=== PATIENT | female | born 1965 | race Caucasian/White ===

== ENCOUNTER 2019-12-28 10:48 | Emergency (ER) | payer SELFPAY ==
--- NOTE | 2019-12-28 11:02 | ECG_ITS ---
Measurements Intervals [place] Rate: 68 P: 64 TN: 172 QRS: 1 QRSD: 76 T: 51 QT: 368 QTc: 392 SINUS RHYTHM POSSIBLE LEFT ATRIAL ENLARGEMENT [-0.1mV P WAVE IN V1/V2] Compared to ECG 10/29/2016 11:34:46 No significant changes Electronically Signed On 12-28-2019 20:54:46 FREIGHT ROUTER by Lemuel Carvajal M.D. [email or web address]
--- NOTE | 2019-12-28 11:02 | XRR_ITS ---
PROCEDURE INFORMATION: Exam: XR Chest, 1 View Exam date and time: 12/28/2019 11:52 AM Age: 54 years old Clinical indication: Smoker's cough; Prior surgery; Surgery date: 6+ months; Surgery type: Gall bladder; Additional info: Cough/congestion TECHNIQUE: Imaging protocol: XR of the chest Views: 1 view. COMPARISON: CR Chest 1 [place] [id number] 10/29/2016 11:49 AM FINDINGS: Lungs: Unremarkable. No consolidation. Pleural space: Unremarkable. No pleural effusion. No pneumothorax. Heart/Mediastinum: Unremarkable. No cardiomegaly. Bones/joints: Unremarkable. XR/XR chest 1V portable [id number] IMPRESSION: No acute findings.
[2019-12-28 11:06] VITALS: BP 147/86; PULSE 69; RESP 16; TEMP 36.5; O2SAT 99; BMI 25.0
--- NOTE | 2019-12-28 11:21 | ED_ITS ---
Entered by Vicky Marques, acting as scribe for Dec 28, 2019 10:48 HPI - Chest Pain General: Chief Complaint: Chest Pain Stated Complaint: Chest Pain Time Seen by Provider: 12/28/19 11:19 History of Present Illness: HPI narrative: 54 yo female presents with chest pain. pt states that her pain is worsened by breathing deep. pt states that she has been belching more. Pt states that she has had her gallbladder removed. Pt states that pushing her chest relieves the pain. She denies any radiation of pain into the neck or arms. No associated diaphoresis or dyspnea. MD complaint: chest pain Onset (ago): day(s) (3) Timing of current episode: constant Prior episodes: No Pain location: substernal Pain radiation: none Severity: moderate Quality: tightness Relieving factors: other (palpation ) Exacerbating factors: inspiration Associated symptoms: Reports no associated symptoms; Deny abdominal pain, dyspnea, fever(s), nausea, palpitations, syncope or vomiting Review of Systems Const: Denies: fever, chills, body aches, fatigue, malaise or night sweats Eyes: Denies: change in vision or blurry vision ENMT: Denies: throat pain, oral sores/lesions, dental pain, nasal discharge or nasal congestion Card: Denies: chest pain, palpitations, irregular heart rhythm, edema, syncope, shortness of breath on exertion, shortness of breath when lying down or leg pain with exertion Resp: Denies: shortness of breath, productive cough, non-productive cough or wheezing GI: Denies: abdominal pain, nausea, vomiting, vomiting blood, coffee grounds in vomit, difficulty swallowing, heartburn/indigestion, diarrhea, constipation, cramping, blood in stool or black tarry stool : Denies: flank pain, painful urination, urinary frequency, urinary urgency, urinary incontinence or blood in urine Musc: Denies: neck pain, back pain, extremity pain, extremity swelling, joint pain or joint swelling Skin/Breast: Denies: rash, itching or redness Neuro: Denies: headache, numbness in extremities, weakness in extremities, changes in sensation, lack of coordination, difficulty walking, frequent falls, dizziness, vertigo or confusion Psych: Denies: anxiety, depression, loss of interest, visual hallucinations, auditory hallucinations, suicidal ideation or homicidal ideation Endo: Denies: excessive urination, excessive thirst, tired all the time or cold intolerance Miguel/Lymph: Denies: easy bruising, easy bleeding, petechiae, enlarged lymph nodes or tender lymph nodes PFSH ED PFSH: Statuses (acute, chronic, etc) shown below reflect problem list status as previously entered and may not be historically accurate Surgical History H/O Spinal surgery (Acute) History of cholecystectomy (Acute) Social History Smoking and tobacco status: never smoked Physical Exam Const: COMMON NORMALS: average body habitus, oriented x3 and alert GENERAL APPEARANCE: cooperative, comfortable, well kempt and well developed NUTRITIONAL APPEARANCE: not obese ORIENTATION/CONSCIOUSNESS: Yes awake, Yes oriented to person and Yes oriented to place HENMT: COMMON NORMALS: normocephalic, head/scalp atraumatic, EAC's normal, TM's normal bilaterally, external nose normal, moist oral mucous membranes and oropharynx normal HEAD & SCALP: normocephalic and atraumatic NOSE: external nose normal EXTERNAL AUDITORY CANAL: EAC's normal TYMPANIC MEMBRANE: TM's normal bilaterally MOUTH: oral and palatal mucosa normal, lip normal and tongue normal THROAT: posterior oropharynx normal and tonsils normal Eye: COMMON NORMALS: PERRL, EOMs intact bilaterally, conjunctivae normal and no scleral icterus CONJUNCTIVA: Yes conjunctivae normal PUPIL: Yes PERRL Neck/C-Spine: COMMON NORMALS: full ROM, no lymphadenopathy, supple, no meningeal signs and thyroid normal THYROID: thyroid normal and asymmetrical Lymph: LYMPHATIC: no lymphadenopathy noted Resp: COMMON NORMALS: normal respiratory effort, no retractions, no use of accessory muscles and clear to auscultation bilaterally AUSCULTATION: clear to auscultation bilaterally Cardio: COMMON NORMALS: regular rate and regular rhythm RATE: regular rate RHYTHM: regular rhythm HEART SOUNDS: no murmurs GI: COMMON NORMALS: normal to inspection, nondistended, normoactive bowel sounds, soft to palpation and no hepatosplenomegaly PALPATION: Yes soft and Yes no hepatosplenomegaly : COMMON NORMALS: Yes no CVA tenderness BLADDER/KIDNEY EXAM: Yes no CVA tenderness Back/Pelvis: COMMON NORMALS: no CVA tenderness LUMBAR SPINE/LOWER BACK: Yes normal to inspection Extremity: COMMON NORMALS: no clubbing, cyanosis or edema, no calf tenderness and no pedal edema Neuro: COMMON NORMALS: oriented x3 SENSORIUM/ORIENTATION: Yes alert, Yes oriented to person and Yes oriented to place MENINGEAL SIGNS: Yes no meningeal signs Psych: APPEARANCE: Yes well kempt Skin: COMMON NORMALS: no rashes or lesions noted and skin turgor normal GENERAL SKIN EXAM: no rashes or lesions noted and turgor normal Course ED course: Reviewed findings with the patient. Pain significantly worsened by deep breath no other triggers noted chest x-ray normal labs normal return if worsens follow-up with primary care provider given NSAIDs for pain control. Vital Signs: Vital signs: Vital Signs Temperature 97.7 F 12/28/19 11:06 Pulse Rate 65 12/28/19 13:27 Respiratory Rate 18 12/28/19 13:27 Blood Pressure 119/68 12/28/19 13:27 Pulse Oximetry 96 12/28/19 13:27 MDM - Chest Pain Lab Data: Labs: Lab Results 12/28/19 12/28/19 12/28/19 Range/Units 12:00 12:00 12:00 WBC 7.7 (4.0-10.0) 10^3/ uL RBC 4.99 (4.1-5.3) 10^6/u L Hgb 14.2 (11.5-15.3) g/dL Hct 42.8 (37.0-47.0) % MCV 85.8 (81-99) fL MCH 28.5 (28.0-34.0) pg MCHC 33.2 (30.0-36.0) g/dL RDW 12.5 (12.1-15.1) % Plt Count 332 (130-400) 10^3/c mm MPV 10.1 (7.4-10.4) fL Neut % (Auto) 60.4 % Lymph % (Auto) 29.3 % [place] % (Auto) 7.7 % Eos % (Auto) 1.7 % Baso % (Auto) 0.8 % Neut # (Auto) 4.7 (1.8-7.7) 10^3/u L Lymph # (Auto) 2.3 (0.8-4.8) 10^3/u L [place] # (Auto) 0.6 (0.2-0.9) 10^3/u L Eos # (Auto) 0.1 (0.0-0.8) 10^3/u L Baso # (Auto) 0.1 (0.0-0.1) 10^3/u L Nucleated RBC % (a uto) 0 % Nucleated RBCs # 0.0 /100WBC Sodium 137 (136-145) mmol/L Potassium 4.0 (3.5-5.1) mmol/L Chloride 102 (98-107) mmol/L Carbon Dioxide 23 (22-29) mmol/L Anion Gap 16.0 (5-19) BUN 17 (6-20) mg/dL Creatinine 0.7 (0.5-0.9) mg/dL GFR Calculation 87.9 L (90-130) mL/min Glucose 114 (65-115) mg/dL Calcium 9.7 (8.5-10.5) mg/dL Total Bilirubin 0.2 (0.15-1.2) mg/dL AST 23 (0-32) U/L ALT 25 (0-33) U/L Alkaline Phosphata se 76 (35-105) IU/L Troponin T Baselin e 6 (0-10) ng/mL Troponin T 120 Min pilot station (0-10) ng/mL Delta Troponin T (0-10) ABS# Total Protein 7.1 (6.6-8.7) g/dL Albumin 4.3 (3.5-5.2) g/dL Globulin 2.8 (1.3-4.6) g/dL 12/28/19 Range/Units 13:09 WBC (4.0-10.0) 10^3/ uL RBC (4.1-5.3) 10^6/u L Hgb (11.5-15.3) g/dL Hct (37.0-47.0) % MCV (81-99) fL MCH (28.0-34.0) pg MCHC (30.0-36.0) g/dL RDW (12.1-15.1) % Plt Count (130-400) 10^3/c mm MPV (7.4-10.4) fL Neut % (Auto) % Lymph % (Auto) % [place] % (Auto) % Eos % (Auto) % Baso % (Auto) % Neut # (Auto) (1.8-7.7) 10^3/u L Lymph # (Auto) (0.8-4.8) 10^3/u L [place] # (Auto) (0.2-0.9) 10^3/u L Eos # (Auto) (0.0-0.8) 10^3/u L Baso # (Auto) (0.0-0.1) 10^3/u L Nucleated RBC % (a uto) % Nucleated RBCs # /100WBC Sodium (136-145) mmol/L Potassium (3.5-5.1) mmol/L Chloride (98-107) mmol/L Carbon Dioxide (22-29) mmol/L Anion Gap (5-19) BUN (6-20) mg/dL Creatinine (0.5-0.9) mg/dL GFR Calculation (90-130) mL/min Glucose (65-115) mg/dL Calcium (8.5-10.5) mg/dL Total Bilirubin (0.15-1.2) mg/dL AST (0-32) U/L ALT (0-33) U/L Alkaline Phosphata se (35-105) IU/L Troponin T Baselin e (0-10) ng/mL Troponin T 120 Min pilot station 6.00 (0-10) ng/mL Delta Troponin T 0 (0-10) ABS# Total Protein (6.6-8.7) g/dL Albumin (3.5-5.2) g/dL Globulin (1.3-4.6) g/dL Discharge Plan Discharge Patient Disposition: Home, Self-Care Clinical Impression: Atypical chest pain, Pleuritis Condition: Stable Prescriptions: New diclofenac sodium 75 mg tablet,delayed release (DR/EC) 75 mg PO BID PRN (Reason: pain) Qty: 20 RF: 0 Discharge Orders: Discharge Order (Routine); Ordered 12/28/19 Ordered By: David Euceda Referrals: Esvin Newberry DO [Family Provider] - Discharge Diet: Usual diet Discharge Activity: Resume usual activity Activity Restrictions/Additional Instructions: Follow-up with your primary care provider. Return to the ER if worsens. Discharge Date/Time: 12/28/19 13:28 Coding Level of Care Code ED Location Analyst for Chg Fwd Exam Problem Focused The documentation recorded by the Jerald rhodes Kialy, accurately reflects the service I personally performed and the decisions made by Kinsey pena Curtis L, DO Dec 28, 2019 10:48
[2019-12-28 11:33] VITALS: BP 111/56; PULSE 62; RESP 15; O2SAT 95
[2019-12-28 12:09] LABS: Basophils # 0.1 10^3/uL (0.0-0.1); Basophils % 0.8 %; Eosinophils # 0.1 10^3/uL (0.0-0.8); Eosinophils % 1.7 %; Hematocrit 42.8 % (37.0-47.0); Hemoglobin 14.2 g/dL (11.5-15.3); Lymphocytes # 2.3 10^3/uL (0.8-4.8); Lymphocytes % 29.3 %; Mean Corpuscular HGB Conc 33.2 g/dL (30.0-36.0); Mean Corpuscular Hemoglobin 28.5 pg (28.0-34.0); Mean Corpuscular Volume 85.8 fL (81-99); Mean Platelet Volume 10.1 fL (7.4-10.4); Monocytes # 0.6 10^3/uL (0.2-0.9); Monocytes % 7.7 %; Neutrophils # 4.7 10^3/uL (1.8-7.7); Neutrophils % 60.4 %; Nucleated Red Blood Cells % 0 %; Platelet Count 332 10^3/cmm (130-400); Red Blood Count 4.99 10^6/uL (4.1-5.3); Red Cell Distribution Width 12.5 % (12.1-15.1); White Blood Count 7.7 10^3/uL (4.0-10.0)
[2019-12-28 12:26] VITALS: BP 114/68; PULSE 64; RESP 18; O2SAT 98
[2019-12-28 12:26] LABS: Alanine Aminotransferase 25 U/L (0-33); Albumin Level 4.3 g/dL (3.5-5.2); Alkaline Phosphatase 76 IU/L (35-105); Aspartate Amino Transferase 23 U/L (0-32); Blood Urea Nitrogen 17 mg/dL (6-20); Calcium 9.7 mg/dL (8.5-10.5); Carbon Dioxide 23 mmol/L (22-29); Chloride 102 mmol/L (98-107); Globulin 2.8 g/dL (1.3-4.6); Glomerular Filtration Rate 87.9 mL/min (90-130); Glucose 114 mg/dL (65-115); Sodium 137 mmol/L (136-145); Total Bilirubin 0.2 mg/dL (0.15-1.2); Total Protein 7.1 g/dL (6.6-8.7)
[2019-12-28 12:27] LABS: Troponin(5th) Baseline 6 ng/mL (0-10)
--- NOTE | 2019-12-28 13:02 | ECG_ITS ---
Measurements Intervals [place] Rate: 59 P: 68 PA: 175 QRS: 44 QRSD: 84 T: 58 QT: 402 QTc: 401 SINUS BRADYCARDIA POSSIBLE LEFT ATRIAL ENLARGEMENT [-0.1mV P WAVE IN V1/V2] Compared to ECG 10/29/2016 11:34:46 Sinus rhythm no longer present Electronically Signed On 12-28-2019 20:59:56 WOOD [employer]IP BLOCK FLOOR INSTALLER by Lemuel Carvajal M.D. [email or web address]
[2019-12-28 13:27] VITALS: BP 119/68; PULSE 65; RESP 18; O2SAT 96
[2019-12-28 14:04] LABS: Troponin 5 2HR Delta 0 ABS# (0-10)
== END 2019-12-28 13:28 | disposition home or self-care (01) ==
PROVIDERS: Physician Assistant; Emergency Provider Family Medicine; Family Provider Internal Medicine
DX: R07.89 Other chest pain (principal); R09.1 Pleurisy
CPT/HCPCS: 36415; 71045; 80053; 84484; 85025; 93005; 99282; 99283

== ENCOUNTER 2023-05-28 14:38 | Outpatient (CLI) | payer OTHER, SELFPAY ==
--- NOTE | 2023-05-28 14:57 | MM_ITS ---
WS: [id number] Bilateral diagnostic 3D tomosynthesis digital mammogram, 05/28/2023 Clinical Data: BREAST PAIN Comparison: 06/20/2015, 06/06/2015. Findings: The breast parenchymal pattern shows fibroglandular tissue. There are mole markers on both breasts. T here are no spiculated masses or clustered calcifications. There are no secondary signs of carcinoma. MM/[place] [id number] Impression: 1. Negative bilateral mammograms unchanged. 2. Left breast ultrasound will be performed. BIRADS: 2-Benign FOLLOW UP: See Report The CAD clerk checker was used.
--- NOTE | 2023-05-28 15:08 | US_ITS ---
WS: [id number] Left breast ultrasound, 05/28/2023 Clinical Data: SCREENING Comparison: None. Findings: The upper outer quadrant of the left breast from 9:00 to 12:00 was examined. There was a lymph node i n the axilla. No spiculated masses were noted. No cysts were seen. The left axillary lymph node measu red 1.32 x 3.13 x 3.41 cm and had a normal border and configuration. US/US breast LT limited* [id number] Impression: 1. Lymph node in left axilla. 2. Recommend return to annual screening mammograms. BIRADS: 2-Benign FOLLOW UP: 1 Year Follow-up
== END 2023-05-28 14:39 | disposition home or self-care (01) ==
PROVIDERS: PCP Internal Medicine; Visit Provider Internal Medicine
DX: N64.4 Mastodynia (principal); Z12.39 Encounter for other screening for malignant neoplasm of breast
CPT/HCPCS: 76642; 77062; G0279

== ENCOUNTER 2024-04-19 16:42 | Emergency (ER) | payer OTHER, SELFPAY ==
[2024-04-19 16:46] VITALS: BP 148/76; PULSE 71; RESP 18; TEMP 36.8; O2SAT 98; BMI 24.7
[2024-04-19 17:08] LABS: Basophils # 0.1 10^3/uL (0.0-0.1); Eosinophils # 0.1 10^3/uL (0.0-0.8); Eosinophils % 1.1 %; Hematocrit 43.8 % (36-47); Lymphocytes # 2.9 10^3/uL (0.8-4.8); Lymphocytes % 40.7 %; Mean Corpuscular HGB Conc 33.6 g/dL (30-55); Mean Corpuscular Hemoglobin 28.6 pg (27-33); Mean Corpuscular Volume 85.2 fl (85-98); Monocytes # 0.7 10^3/uL (0.2-0.9); Monocytes % 10.3 %; Neutrophils # 3.32 10^3/uL (1.8-7.7); Neutrophils % 46.8 %; Nucleated Red Blood Cells % 0 %; Platelet Count 329 10^3/cmm (157-399); Red Blood Count 5.14 10^6/uL (3.85-5.65); Red Cell Distribution Width 13.1 % (12.1-15.1)
--- NOTE | 2024-04-19 17:18 | CTR_ITS ---
PROCEDURE INFORMATION: Exam: CT Abdomen And Pelvis With Contrast Exam date and time: 04/19/2024 6:37 PM Age: 59 years old Clinical indication: Abdominal pain; Localized; Lower; Prior surgery; Surgery date: 6+ months; Surgery type: Gb; Additional info: Lower abd/pelvic pain + pressure and bloating TECHNIQUE: Imaging protocol: Computed tomography of the abdomen and pelvis with contrast. Radiation optimization: All CT scans at this facility use at least one of these dose optimization techniques: automated exposure control; mA and/or kV adjustment per patient size (includes targeted exams where dose is matched to clinical indication); or iterative reconstruction. Contrast material: OMNI 350; Contrast volume: 100 ml; Contrast route: INTRAVENOUS (IV); COMPARISON: CR XR chest 1V portable [id number] 12/28/2019 11:41 AM RADIATION DOSE METRICS: Total DLP (mGy-cm): 439 FINDINGS: Lungs: Lung bases are clear. No pleural effusion. Liver: Normal. No mass. Gallbladder and bile ducts: The gallbladder has been resected. Pancreas: Normal. No ductal dilation. Spleen: Normal. No splenomegaly. Adrenal glands: Normal. No mass. Kidneys and ureters: Normal. No hydronephrosis. Stomach and bowel: Unremarkable. No obstruction. No mucosal thickening. Appendix: No evidence of appendicitis. Intraperitoneal space: Unremarkable. No free air. No significant fluid collection. Vasculature: Unremarkable. No abdominal aortic aneurysm. Lymph nodes: Unremarkable. No enlarged lymph nodes. Urinary bladder: Unremarkable as visualized. Reproductive: Unremarkable as visualized. Bones/joints: Unremarkable. No acute fracture. Soft tissues: Unremarkable. CT/CT abdomen pelvis w con* [id number] IMPRESSION: No acute findings.
--- NOTE | 2024-04-19 17:18 | ED_ITS ---
Documented by User: BARRY Rodgers 04/19/24 19:49 HPI - Abdominal Pain 2 General: Chief Complaint: Abdominal Pain Stated Complaint: abd pain Time Seen by Provider: 04/19/24 17:09 Source: patient Mode of arrival: ambulatory Limitations: no limitations History of Present Illness: Patient is a 59-year-old female who presents to the emergency department complaining of lower abdominal pain since Thursday. Initially she was seen at [facility] on Thursday, was given antibiotics empirically for a diverticulitis, though patient denies any history of diverticulitis or diverticulosis. Patient states that her pain is continued to worsen. Pain is located in the bilateral lower quadrants, and she is noting some associated bloating. She states the pain feels like a dull/achy pain with pressure. She states the pain is worsened with ambulation, and does get relief with lying flat though she can still tell that the pain is there. She notes she has been running intermittent fevers and has had some associated nausea. She does state that the pain sometimes radiates into her vaginal region and feels like there is a lot of pressure down there. She states she still has her uterus and ovaries. History of cholecystectomy but still has her appendix. She has not taken anything for pain as she states she is worried of taking ibuprofen due to stomach complications. She denies any blood in her urine or dysuria, vaginal discharge or odor, chills, diaphoresis, back pain, syncope, or other symptoms at this time. MD elicited complaint: abdominal pain Pertinent past history: none Onset (ago): day(s) Pain Consistency: constant Location: RLQ, LLQ, Suprapubic and Pelvis Severity: moderate Quality: aching, fullness and dull Exacerbating factors: movement Relieving factors: rest Associated Symptoms: Reports bloating, fever(s) and nausea; Denies change in stool character, chills, constipation, diarrhea, dysuria, hematochezia, hematuria and vomiting Treatments prior to arrival: other (Antibiotics) Review of Systems 2 General: Reports: 10 or more systems reviewed and unremarkable except in HPI and below Const: Reports: fever(s); Denies: chills, change in appetite, change in weight or diaphoresis ENMT: Denies: throat pain or hoarseness Card: Denies: chest pain, palpitations or lightheadedness Resp: Denies: dyspnea, productive cough or wheezing GI: Reports: abdominal pain, nausea and bloating; Denies: vomiting, diarrhea, constipation, change in stool character or hematochezia : Reports: pelvic pain; Denies: flank pain, difficulty voiding, dysuria, urinary frequency, urinary urgency, hematuria, vaginal odor, vaginal bleeding or vaginal discharge Musc: Denies: neck pain or back pain Skin/Breast: Denies: rash or new lesions Neuro: Denies: headache(s) or dizziness PFSH ED 2 PFSH: Surgical History History of cholecystectomy H/O Spinal surgery Social History Smoking and tobacco/nicotine status: never used tobacco/nicotine Physical Exam 2 Const: COMMON NORMALS: no acute distress, average body habitus, patient oriented x3, no limitations, healthy appearing, alert and well nourished G ENERAL APPEARANCE: cooperative and comfortable ORIENTATION/CONSCIOUSNESS: Yes awake HENMT: COMMON NORMALS: normocephalic, atraumatic, hearing grossly normal bilaterally, external ears normal, Normal external nose present, Normal nasal mucous membranes and turbinates present and moist oral mucous membranes HEAD & SCALP: normocephalic and atraumatic NOSE: Normal external nose present and Normal nasal mucous membranes and turbinates present EXTERNAL EAR: Yes external ears normal Eye: COMMON NORMALS: Equal, round and reactive pupils present, EOMs intact bilaterally, conjunctivae normal and normal visual barney by confrontation C ONJUNCTIVA: Yes conjunctivae normal PUPIL: Yes Equal, round and reactive pupils present Neck/C-Spine: COMMON NORMALS: full ROM, supple, no meningeal signs and no JVD Resp: COMMON NORMALS: normal respiratory effort, No retractions, No use of accessory muscles and clear to auscultation bilaterally AUSCULTATION: clear to auscultation bilaterally, no crackles, no rales, no rhonchi and no wheezes Cardio: COMMON NORMALS: no JVD, regular rate, regular rhythm, S1 normal heart sound present, S2 normal heart sound present, No gallops present (Cardio), No clicks present (Cardio), No murmurs present (Cardio), No rub (Cardio) and Peripheral pulses 2+ throughout RATE: regular rate RHYTHM: regular rhythm HEART SOUNDS: S1 normal heart sound present and S2 normal heart sound present PERIPHERAL PULSES: Peripheral pulses 2+ throughout GI: COMMON NORMALS: Normal to inspection, nondistended, normoactive bowel sounds present, No hepatosplenomegaly present and no masses PALPATION: No Guarding due to palpation present (GI), No Rigid due to palpation and Yes No hepatosplenomegaly present RECTAL EXAM: deferred OTHER: Mild reproducible tenderness to palpation of the bilateral lower quadrants. Mild amount of distention noted. Hyperactive bowel sounds. : COMMON NORMALS: Yes no CVA tenderness BLADDER/KIDNEY EXAM: Yes no CVA tenderness Back/Pelvis: COMMON NORMALS: no CVA tenderness Extremity: COMMON NORMALS: normal to inspection and full ROM Neuro: COMMON NORMALS: patient oriented x3, moves all extremities, no focal motor deficits and no sensory deficits noted SENSORIUM/ORIENTATION: Yes alert MENINGEAL SIGNS: Yes no meningeal signs Psych: COMMON NORMALS: mental status grossly normal, cooperative and speech normal SPEECH: Yes normal speech Skin: COMMON NORMALS: no rashes or lesions noted GENERAL SKIN EXAM: no rashes or lesions noted Course 2 Vital Signs: Vital signs: Vital Signs Temperature 98.2 F 04/19/24 16:46 Pulse Rate 67 04/19/24 20:02 Respiratory Rate 18 04/19/24 20:02 Blood Pressure 135/73 04/19/24 20:02 Pulse Oximetry 98 04/19/24 20:02 Oxygen Delivery Me thod Room Air 04/19/24 18:30 MDM - Abdominal Pain Medical Decision Making Patient presented for 4 days of lower abdominal pain, associated with nausea and bloating. Was started on Cipro and Flagyl for presumed diverticulitis starting Thursday at [facility]. Her examination revealed some mild distention and mild reproducible tenderness to palpation about the lower quadrants and suprapubic region. Her lab work was all entirely unremarkable. Urinalysis negative for any signs of infection. Abdominal pelvic CT did not demonstrate any acute findings. I relayed this to the patient, who is relieved but states that she wants to know what is going on with her. I did inform her to follow-up with primary care for further testing such as potential upper/lower endoscopy, and she states she has never had any procedure like this done. Additionally, she states that she is afraid to take medications and has not taken anything for pain at this time. I did inform her that I recommend taking ibuprofen/Tylenol for her pain, and if she is worried that she can take half doses every 6 hours. She states she will do this and follow-up as discussed. However did give strict return precautions to the ED. Patient discharged home and will be discontinued on antibiotics. Lab Data I reviewed the patient's lab results. 04/19/24 17:01 04/19/24 17:01 Labs/Radiology: Radiology Impressions Abdomen/Pelvis CT 04/19/24 17:18 IMPRESSION: No acute findings. Laboratory Results WBC 7.10 10^3/uL (3.29-11.43) 04/19/24 17:01 RBC 5.14 10^6/uL (3.85-5.65) 04/19/24 17:01 Hgb 14.70 g/dL (11.27-16.99) 04/19/24 17:01 Hct 43.8 % (36-47) 04/19/24 17:01 MCV 85.2 fl (85-98) 04/19/24 17:01 MCH 28.6 pg (27-33) 04/19/24 17:01 MCHC 33.6 g/dL (30-55) 04/19/24 17:01 RDW 13.1 % (12.1-15.1) 04/19/24 17:01 Plt Count 329 10^3/cmm (157-399) 04/19/24 17:01 MPV 10.0 fL (7.4-10.4) 04/19/24 17:01 Neut % (Auto) 46.8 % 04/19/24 17:01 Lymph % (Auto) 40.7 % 04/19/24 17:01 [place] % (Auto) 10.3 % 04/19/24 17:01 Eos % (Auto) 1.1 % 04/19/24 17:01 Baso % (Auto) 1.0 % 04/19/24 17:01 Neut # (Auto) 3.32 10^3/uL (1.8-7.7) 04/19/24 17:01 Lymph # (Auto) 2.9 10^3/uL (0.8-4.8) 04/19/24 17:01 [place] # (Auto) 0.7 10^3/uL (0.2-0.9) 04/19/24 17:01 Eos # (Auto) 0.1 10^3/uL (0.0-0.8) 04/19/24 17:01 Baso # (Auto) 0.1 10^3/uL (0.0-0.1) 04/19/24 17:01 Nucleated RBC % (auto) 0 % 04/19/24 17:01 Nucleated RBCs # 0.0 /100WBC 04/19/24 17:01 Sodium 141 mmol/L (136-145) 04/19/24 17:01 Potassium 4.0 mmol/L (3.5-5.1) 04/19/24 17:01 Chloride 104 mmol/L (98-107) 04/19/24 17:01 Carbon Dioxide 25 mmol/L (22-29) 04/19/24 17:01 Anion Gap 16.0 (5-19) 04/19/24 17:01 BUN 21 mg/dL (6-20) H 04/19/24 17:01 Creatinine 0.9 mg/dL (0.5-0.9) 04/19/24 17:01 GFR Calculation 64.5 mL/min (90-130) L 04/19/24 17:01 Glucose 93 mg/dL (65-115) 04/19/24 17:01 Calculated Osmolality 295 mOsm/kg (285-295) 04/19/24 17:01 Calcium 9.2 mg/dL (8.5-10.5) 04/19/24 17:01 Total Bilirubin 0.2 mg/dL (0.15-1.2) 04/19/24 17:01 AST 16 U/L (0-32) 04/19/24 17:01 ALT 18 U/L (0-33) 04/19/24 17:01 Alkaline Phosphatase 75 U/L (35-105) 04/19/24 17:01 Total Protein 7.3 g/dL (6.6-8.7) 04/19/24 17:01 Albumin 4.1 g/dL (3.5-5.2) 04/19/24 17:01 Globulin 3.2 g/dL (1.3-4.6) 04/19/24 17:01 Lipase 34 U/L (13-60) 04/19/24 17:01 Urine Color Yellow (Yellow) 04/19/24 17:48 Urine Appearance Clear (CLEAR) 04/19/24 17:48 Urine pH 5 (5-7) 04/19/24 17:48 Ur Specific [place] 1.020 (1.005-1.030) 04/19/24 17:48 Urine Protein Neg (Negative) 04/19/24 17:48 Urine Glucose (UA) Norm (Normal) 04/19/24 17:48 Urine Ketones Negative (Negative) 04/19/24 17:48 Urine Blood Neg (Negative) 04/19/24 17:48 Urine Nitrate Negative (Negative) 04/19/24 17:48 Urine Bilirubin Neg (Negative) 04/19/24 17:48 Urine Urobilinogen Norm mg/dL (Negative) 04/19/24 17:48 Ur Leukocyte Esterase Trace (Negative) H 04/19/24 17:48 Urine RBC None /hpf (0-2) 04/19/24 17:48 Urine WBC 0-4 /hpf (0-5) H 04/19/24 17:48 Ur Squamous Epith Cells 5-10 /hpf (0-5) H 04/19/24 17:48 Amorphous Sediment Not Reportable 04/19/24 17:48 Urine Bacteria None /hpf (NONE) 04/19/24 17:48 Urine Mucus Trace /hpf 04/19/24 17:48 All radiology interpretation(s) finalized by discharge Discharge Plan Discharge Patient Disposition: Home Clinical Impression: Abdominal pain Qualifiers: Abdominal location: lower abdomen, unspecified Qualified Code(s): R10.30 - Lower abdominal pain, unspecified Condition: Stable Prescriptions: No Action diclofenac sodium 75 mg tablet,delayed release (DR/EC) 75 mg PO BID PRN (Reason: pain) Qty: 20 0RF Discharge Orders: Discharge ED (Routine); Ordered 04/19/24 Ordered By: Demetrius Otoole Referrals: Esvin Newberry DO [Primary Care Provider] - Discharge Diet: Usual diet Discharge Activity: Increase activity as tolerated Patient Instructions: Abdominal Pain (ED), Pain Management Activity Restrictions/Additional Instructions: Follow-up with primary care for further outpatient management as discussed. You may discontinue your antibiotics at this time as there are no signs of infection with lab or imaging. Plenty of fluids. Monitor for any new or worsening symptoms and return for reevaluation. Coding Level of Care Code ED [facility] for [facility] Documented by User: David Euceda DO 04/22/24 21:34 HPI - Abdominal Pain 2 General: Chief Complaint: Abdominal Pain Stated Complaint: abd pain Time Seen by Provider: 04/19/24 17:09 [facility] ED 2 PFSH: Surgical History History of cholecystectomy H/O Spinal surgery Social History Smoking and tobacco/nicotine status: never used tobacco/nicotine Course 2 Vital Signs: Vital signs: Vital Signs Temperature 98.2 F 04/19/24 16:46 Pulse Rate 67 04/19/24 20:02 Respiratory Rate 18 04/19/24 20:02 Blood Pressure 135/73 04/19/24 20:02 Pulse Oximetry 98 04/19/24 20:02 Oxygen Delivery Me thod Room Air 04/19/24 18:30 MDM - Abdominal Pain Medical Decision Making Patient presented for 4 days of lower abdominal pain, associated with nausea and bloating. Was started on Cipro and Flagyl for presumed diverticulitis starting Thursday at [facility]. Her examination revealed some mild distention and mild reproducible tenderness to palpation about the lower quadrants and suprapubic region. Her lab work was all entirely unremarkable. Urinalysis negative for any signs of infection. Abdominal pelvic CT did not demonstrate any acute findings. I relayed this to the patient, who is relieved but states that she wants to know what is going on with her. I did inform her to follow-up with primary care for further testing such as potential upper/lower endoscopy, and she states she has never had any procedure like this done. Additionally, she states that she is afraid to take medications and has not taken anything for pain at this time. I did inform her that I recommend taking ibuprofen/Tylenol for her pain, and if she is worried that she can take half doses every 6 hours. She states she will do this and follow-up as discussed. However did give strict return precautions to the ED. Patient discharged home and will be discontinued on antibiotics. Chart reviewed Lab Data 04/19/24 17:01 04/19/24 17:01 Labs/Radiology: Radiology Impressions Abdomen/Pelvis CT 04/19/24 17:18 IMPRESSION: No acute findings. Laboratory Results WBC 7.10 10^3/uL (3.29-11.43) 04/19/24 17:01 RBC 5.14 10^6/uL (3.85-5.65) 04/19/24 17:01 Hgb 14.70 g/dL (11.27-16.99) 04/19/24 17:01 Hct 43.8 % (36-47) 04/19/24 17:01 MCV 85.2 fl (85-98) 04/19/24 17:01 MCH 28.6 pg (27-33) 04/19/24 17:01 MCHC 33.6 g/dL (30-55) 04/19/24 17:01 RDW 13.1 % (12.1-15.1) 04/19/24 17:01 Plt Count 329 10^3/cmm (157-399) 04/19/24 17:01 MPV 10.0 fL (7.4-10.4) 04/19/24 17:01 Neut % (Auto) 46.8 % 04/19/24 17:01 Lymph % (Auto) 40.7 % 04/19/24 17:01 [place] % (Auto) 10.3 % 04/19/24 17:01 Eos % (Auto) 1.1 % 04/19/24 17:01 Baso % (Auto) 1.0 % 04/19/24 17:01 Neut # (Auto) 3.32 10^3/uL (1.8-7.7) 04/19/24 17:01 Lymph # (Auto) 2.9 10^3/uL (0.8-4.8) 04/19/24 17:01 [place] # (Auto) 0.7 10^3/uL (0.2-0.9) 04/19/24 17:01 Eos # (Auto) 0.1 10^3/uL (0.0-0.8) 04/19/24 17:01 Baso # (Auto) 0.1 10^3/uL (0.0-0.1) 04/19/24 17:01 Nucleated RBC % (auto) 0 % 04/19/24 17:01 Nucleated RBCs # 0.0 /100WBC 04/19/24 17:01 Sodium 141 mmol/L (136-145) 04/19/24 17:01 Potassium 4.0 mmol/L (3.5-5.1) 04/19/24 17:01 Chloride 104 mmol/L (98-107) 04/19/24 17:01 Carbon Dioxide 25 mmol/L (22-29) 04/19/24 17:01 Anion Gap 16.0 (5-19) 04/19/24 17:01 BUN 21 mg/dL (6-20) H 04/19/24 17:01 Creatinine 0.9 mg/dL (0.5-0.9) 04/19/24 17:01 GFR Calculation 64.5 mL/min (90-130) L 04/19/24 17:01 Glucose 93 mg/dL (65-115) 04/19/24 17:01 Calculated Osmolality 295 mOsm/kg (285-295) 04/19/24 17:01 Calcium 9.2 mg/dL (8.5-10.5) 04/19/24 17:01 Total Bilirubin 0.2 mg/dL (0.15-1.2) 04/19/24 17:01 AST 16 U/L (0-32) 04/19/24 17:01 ALT 18 U/L (0-33) 04/19/24 17:01 Alkaline Phosphatase 75 U/L (35-105) 04/19/24 17:01 Total Protein 7.3 g/dL (6.6-8.7) 04/19/24 17:01 Albumin 4.1 g/dL (3.5-5.2) 04/19/24 17:01 Globulin 3.2 g/dL (1.3-4.6) 04/19/24 17:01 Lipase 34 U/L (13-60) 04/19/24 17:01 Urine Color Yellow (Yellow) 04/19/24 17:48 Urine Appearance Clear (CLEAR) 04/19/24 17:48 Urine pH 5 (5-7) 04/19/24 17:48 Ur Specific [place] 1.020 (1.005-1.030) 04/19/24 17:48 Urine Protein Neg (Negative) 04/19/24 17:48 Urine Glucose (UA) Norm (Normal) 04/19/24 17:48 Urine Ketones Negative (Negative) 04/19/24 17:48 Urine Blood Neg (Negative) 04/19/24 17:48 Urine Nitrate Negative (Negative) 04/19/24 17:48 Urine Bilirubin Neg (Negative) 04/19/24 17:48 Urine Urobilinogen Norm mg/dL (Negative) 04/19/24 17:48 Ur Leukocyte Esterase Trace (Negative) H 04/19/24 17:48 Urine RBC None /hpf (0-2) 04/19/24 17:48 Urine WBC 0-4 /hpf (0-5) H 04/19/24 17:48 Ur Squamous Epith Cells 5-10 /hpf (0-5) H 04/19/24 17:48 Amorphous Sediment Not Reportable 04/19/24 17:48 Urine Bacteria None /hpf (NONE) 04/19/24 17:48 Urine Mucus Trace /hpf 04/19/24 17:48 Discharge Plan Discharge Patient Disposition: Home Clinical Impression: Abdominal pain Qualifiers: Abdominal location: lower abdomen, unspecified Qualified Code(s): R10.30 - Lower abdominal pain, unspecified Condition: Stable Prescriptions: No Action diclofenac sodium 75 mg tablet,delayed release (DR/EC) 75 mg PO BID PRN (Reason: pain) Qty: 20 0RF Discharge Orders: Discharge ED (Routine); Ordered 04/19/24 Ordered By: Demetrius Otoole Referrals: Esvin Newberry DO [Primary Care Provider] - Discharge Diet: Usual diet Discharge Activity: Increase activity as tolerated Patient Instructions: Abdominal Pain (ED), Pain Management Activity Restrictions/Additional Instructions: Follow-up with primary care for further outpatient management as discussed. You may discontinue your antibiotics at this time as there are no signs of infection with lab or imaging. Plenty of fluids. Monitor for any new or worsening symptoms and return for reevaluation. Coding Level of Care Code ED [facility] for [facility]ye Joshi
[2024-04-19 17:28] LABS: Alanine Aminotransferase 18 U/L (0-33); Albumin Level 4.1 g/dL (3.5-5.2); Alkaline Phosphatase 75 U/L (35-105); Aspartate Amino Transferase 16 U/L (0-32); Blood Urea Nitrogen 21 mg/dL (6-20); Calcium 9.2 mg/dL (8.5-10.5); Carbon Dioxide 25 mmol/L (22-29); Chloride 104 mmol/L (98-107); Globulin 3.2 g/dL (1.3-4.6); Glomerular Filtration Rate 64.5 mL/min (90-130); Glucose 93 mg/dL (65-115); Lipase 34 U/L (13-60); Osmolality Calculated 295 mOsm/kg (285-295); Sodium 141 mmol/L (136-145); Total Bilirubin 0.2 mg/dL (0.15-1.2); Total Protein 7.3 g/dL (6.6-8.7)
[2024-04-19 17:30] VITALS: BP 120/64; PULSE 65; O2SAT 96
[2024-04-19] MEDS: sodium chloride 0.9% 1,000 ML 999 ML IV (17:35)
[2024-04-19 18:05] LABS: Add Urine Microscopic? YES; Bilirubin Urine Neg (Negative); Blood Urine Neg (Negative); Glucose Urine UA Norm (Normal); Ketones Urine Negative (Negative); Leukocyte Esterase Urine Trace (Negative); Nitrate Urine Negative (Negative); Protein Urine Neg (Negative); Urine Appearance Clear (CLEAR); Urine Color Yellow (Yellow); Urobilinogen Urine Norm (Negative); pH Urine 5 (5-7)
[2024-04-19 18:12] LABS: Add Urine Culture? No; Mucus Urine TRACE /hpf; WBC Urine 0-4 /hpf (0-5)
[2024-04-19 18:30] VITALS: BP 132/74; PULSE 67; O2SAT 98
[2024-04-19] MEDS: iohexol 350 mg/mL 500 mL Btl (per mL) IV (18:42)
--- NOTE | 2024-04-19 18:51 | PC.NURSE ---
Assumed care from Steff WADE.
[2024-04-19 20:02] VITALS: BP 135/73; PULSE 67; RESP 18; O2SAT 98
== END 2024-04-19 20:03 | disposition home or self-care (01) ==
PROVIDERS: Emergency Medicine; Emergency Provider Physician Assistant; PCP Internal Medicine
DX: R10.30 Lower abdominal pain, unspecified (principal)
CPT/HCPCS: 74177; 80053; 81001; 83690; 85025; 99285; J7030; Q9967

== ENCOUNTER 2024-07-01 07:58 | Outpatient (CLI) | payer OTHER, SELFPAY ==
--- NOTE | 2024-07-01 08:04 | MM_ITS ---
WS: [id number] BILATERAL SCREENING DIGITAL TOMOSYNTHESIS MAMMOGRAM WITH CAD HISTORY: SCREEN COMPARISON: 05/28/2023, 06/20/2015 Bilateral CC and MLO views with tomosynthesis and synthetic mammography submitted. Computer aided det ection analyzed. Breast composition: There are scattered areas of fibroglandular density. No suspicious masses, microc alcifications or architectural distortion. MM/[place] [id number] IMPRESSION: BI-RADS: 1-Negative FOLLOW UP: 1 Year Follow-up
== END 2024-07-01 07:59 | disposition home or self-care (01) ==
LOC: RAD 07:59
PROVIDERS: PCP Internal Medicine; Visit Provider Internal Medicine
DX: Z12.31 Encounter for screening mammogram for malignant neoplasm of breast (principal); R92.323 Mammographic fibroglandular density, bilateral breasts
CPT/HCPCS: 77063; 77067